=== PATIENT | female | born 1985 | race Caucasian/White ===

== ENCOUNTER → 2016-06-05 | Outpatient (CLI) | payer BC, OTHER ==
[~2016-06-05] MED LIST: PRENTAB26 PO
[2016-06-05 12:37] LABS: URINE APPEARANCE CLEAR (CLEAR); URINE BILIRUBIN NEG (NEG); URINE COLOR YELLOW; URINE NITRITE NEG (NEG); URINE PH 6.5 (4.5-7.5); URINE SPECIFIC GRAVITY 1.018 (1.000-1.030); UROBILINOGEN NEG (NEG)
[2016-06-05 12:49] LABS: MANUAL MICROSCOPIC REQUIRED? NO; REVIEW REQ? NO
== END | disposition home or self-care (01) ==
LOC: C.LABSPEC 11:15
PROVIDERS: ATTEND Obstetrics & Gynecology
DX: Z34.90 Encounter for supervision of normal pregnancy, unspecified, unspecified trimester (principal)

== ENCOUNTER → 2016-06-12 | Outpatient (CLI) | payer BC ==
[2016-06-12 14:44] LABS: BASO % 0.3 %; BASO ABS # 0.02 K/uL (0-0.2); COMPLETE YES; EOS % 1.7 %; HEMATOCRIT 38.4 % (37-47); IG% 0.1 %; LYMPH % 30.2 %; LYMPH ABS # 2.18 K/uL (1.2-3.4); MEAN CELL VOLUME 86.5 fL (80-100); MEAN CORPUSCULAR HEMOGLOBIN 29.7 pg (25-34); MEAN CORPUSCULAR HGB CONC 34.4 g/dl (32-36); MONO % 7.7 %; PLATELET COUNT 315 K/uL (130-400); RED BLOOD COUNT 4.44 M/uL (4.2-5.4); WHITE BLOOD COUNT 7.23 K/uL (4.8-10.8)
== END | disposition home or self-care (01) ==
LOC: C.LAB1850 13:14
PROVIDERS: ATTEND Obstetrics & Gynecology
DX: Z34.90 Encounter for supervision of normal pregnancy, unspecified, unspecified trimester (principal)

== ENCOUNTER → 2016-06-12 | Outpatient (CLI) | payer BC | END | disposition home or self-care (01) | LOC: C.PAPS 11:05 | PROVIDERS: ATTEND Obstetrics & Gynecology | DX: Z34.90 Encounter for supervision of normal pregnancy, unspecified, unspecified trimester (principal) ==

== ENCOUNTER → 2016-06-12 | Outpatient (CLI) | payer BC ==
[2016-06-15 11:06] LABS: MANUAL MICROSCOPIC REQUIRED? NO; URINE APPEARANCE CLEAR (CLEAR); URINE BILIRUBIN NEG (NEG); URINE COLOR YELLOW; URINE NITRITE NEG (NEG); URINE SPECIFIC GRAVITY 1.015 (1.000-1.030); UROBILINOGEN NEG (NEG)
[2016-06-15 11:07] LABS: REVIEW REQ? NO
[2016-06-16 00:45] LABS: CHLAMYDIA TRACH RNA*** NOT DETECTED (NOT DETECTED); GC (NEIS GONORRHOEAE)RNA** NOT DETECTED (NOT DETECTED)
== END | disposition home or self-care (01) ==
LOC: C.LABSPEC 15:59
PROVIDERS: ATTEND Obstetrics & Gynecology
DX: Z34.81 Encounter for supervision of other normal pregnancy, first trimester (principal)

== ENCOUNTER → 2016-08-11 | Outpatient (CLI) | payer BC ==
[2016-08-11 13:51] LABS: GTGD 50 Grams
== END | disposition home or self-care (01) ==
LOC: C.LAB1850 08:56
PROVIDERS: ATTEND Obstetrics & Gynecology
DX: Z34.82 Encounter for supervision of other normal pregnancy, second trimester (principal)

== ENCOUNTER → 2016-11-05 | Outpatient (CLI) | payer BC ==
[2016-11-05 10:07] LABS: HEMATOCRIT 36.9 % (37-47)
[2016-11-05 11:21] LABS: GTGD 50 Grams
[2016-11-05 13:33] LABS: URINE APPEARANCE CLEAR (CLEAR); URINE BILIRUBIN NEG (NEG); URINE COLOR YELLOW; URINE EPITHELIAL CELL AUTO 20-30 /lpf (0-5); URINE NITRITE NEG (NEG); URINE PH 7.5 (4.5-7.5); URINE SPECIFIC GRAVITY 1.022 (1.000-1.030); UROBILINOGEN NEG (NEG)
[2016-11-05 13:42] LABS: MANUAL MICROSCOPIC REQUIRED? NO; REVIEW REQ? NO
== END | disposition home or self-care (01) ==
LOC: C.LAB1850 08:41
PROVIDERS: ATTEND Obstetrics & Gynecology
DX: Z34.83 Encounter for supervision of other normal pregnancy, third trimester (principal)

== ENCOUNTER → 2016-12-25 | Outpatient (CLI) | payer BC | END | disposition home or self-care (01) | LOC: C.LABSPEC 15:45 | PROVIDERS: ATTEND Obstetrics & Gynecology | DX: Z34.83 Encounter for supervision of other normal pregnancy, third trimester (principal); Z3A.00 Weeks of gestation of pregnancy not specified ==

== ENCOUNTER 2017-01-07 23:39 | Inpatient (IN) | payer BC ==
[~2017-01-07] VITALS: Ht 162.6 cm; Wt 90.5 kg
[2017-01-08] MEDS ORDERED: LACTATED RINGER'S 1000ML 1,000 ML IV SCH (00:06)
[2017-01-08] MEDS ORDERED: LACTATED RINGER'S 1000ML 1,000 ML IV PRN (00:06)
[2017-01-08] MEDS ORDERED: BUPIVACAINE 0.25% 30 ML VIAL ONE (00:17)
[2017-01-08] MEDS ORDERED: EpHEDrine SULFATE INJ 50 MG/ML AMP ONE (00:17)
[2017-01-08] MEDS ORDERED: FENTANYL CITRATE INJ 50 MCG/1 ML 2 ML VIAL ONE (00:18)
[2017-01-08] MEDS ORDERED: FENTANYL 2MCG/ML ROPIV 1.25MG/ML 100ML BAG EPI ONE (00:18)
[2017-01-08 00:26] LABS: MEAN CELL VOLUME 88.5 fL (80-100); MEAN CORPUSCULAR HEMOGLOBIN 30.5 pg (25-34); MEAN PLATELET VOLUME 10.4 fL (7.4-10.4); PLATELET COUNT 191 K/uL (130-400); RED BLOOD COUNT 4.07 M/uL (4.2-5.4)
[2017-01-08 00:40] VITALS: Ht 162.6 cm; Wt 90.5 kg
[2017-01-08 00:40] LABS: INR 0.9 (0.9-1.1); MEAN CORPUSCULAR HGB CONC 34.4 g/dl (32-36)
[2017-01-08] MEDS ORDERED: NALOXONE HCL INJ 1 MG in SODIUM CHLORIDE 0.9% 1000ML 1,000 ML IV PRN (01:07)
[2017-01-08] MEDS ORDERED: LACTATED RINGER'S 1000ML 500 ML IV PRN (01:07)
[2017-01-08] MEDS ORDERED: DiphenhydrAMINE HCL 50 MG/ML VIAL IV PRN (01:15)
[2017-01-08] MEDS ORDERED: EpHEDrine SULFATE INJ 50 MG/ML AMP IV PRN (01:15)
[2017-01-08] MEDS ORDERED: NALBUPHINE HCL INJ 10 MG/ML AMP IV PRN (01:15)
[2017-01-08] MEDS ORDERED: FENTANYL 2MCG/ML ROPIV 1.25MG/ML 100ML BAG EPI PRN (01:15)
[2017-01-08] MEDS ORDERED: NALOXONE HCL INJ 0.4 MG/1 ML VIAL/CARP IV PRN (01:15)
[2017-01-08] MEDS ORDERED: OXYTOCIN 30 UNITS/500ML NSS IV ONE (02:27)
[2017-01-08] MEDS ORDERED: ACETAMINOPHEN/CODEINE 300/30MG TAB PO PRN ×2 (03:00)
[2017-01-08] MEDS ORDERED: IBUPROFEN 600 MG TAB PO PRN (03:00)
[2017-01-08] MEDS ORDERED: OXYTOCIN 30 UNITS/500ML NSS IV PRN (03:00)
[2017-01-08] MEDS ORDERED: ACETAMINOPHEN 325 MG TAB PO PRN (03:00)
[2017-01-08] MEDS ORDERED: LANOLIN OINT EXT PRN ×2 (03:00)
[2017-01-08] MEDS ORDERED: HYDROCORTISONE ACETATE 25 MG SUPP PR PRN (03:00)
[2017-01-08] MEDS ORDERED: BENZOCAINE 20% AER SPR 82.5 GM CAN EXT PRN (03:00)
[2017-01-08] MEDS ORDERED: OXYCODONE/ACETAMINOPHEN 5-325 TAB PO PRN (03:00)
[2017-01-08] MEDS ORDERED: SUPERCREAM 0.870 % 15GM JAR EXT PRN (03:00)
--- NOTE | 2017-01-08 07:27 | Anesthesia Procedure Note ---
Anesthesia Epidural Removal Nt Date & Time Jan 08, 2017 at 07:27 Vital Signs Pain Intensity: 2 Notes Mental Status: alert / awake / arousable, participated in evaluation Nausea / Vomiting: adequately controlled Pain: adequately controlled Airway Patency, RR, SpO2: stable & adequate BP & HR: stable & adequate Hydration State: stable & adequate Neuraxial Anesthesia: was administered Anesthetic Complications: no major complications apparent, pt satisfied with anesthetic care Epidural: removed without complications, with tip intact
--- NOTE | 2017-01-08 07:41 | Discharge Instructions ---
Discharge Instructions Date of Service Jan 08, 2017. Admission Reason for Admission: Demise > 22 Wks, Delivered, Currently Hospit Discharge Discharge Diagnosis / Problem: after vaginal delivery Discharge Goals Goal(s): Routine recovery after delivery Medications Continue Dispensed Medications: supercream, dermaplast, tucks, lansinoh Activity Recommendations Activity Limitations: per Instructions/Follow-up section . Instructions / Follow-Up Instructions / Follow-Up ACTIVITY RECOMMENDATIONS: * Vaginal rest (no tampons, douching, intercourse) until after doctor 's visit. * control as discussed with doctor. * Wear a bra for 24 hours/day for comfort. SPECIAL CARE INSTRUCTIONS: Medications: * vitamins, one tablet daily. Continue taking until prescription is complete. Call you doctor if: * Temperature greater than or equal to 100.4 degrees F or 38.0 degrees C. * Bleeding becomes heavier than the heaviest part of your period - saturating a sanitary pad within an hour. * Passing large clots. * Unrelieved pain. * Bleeding has a foul smelling odor. * Signs and symptoms of phlebitis: leg pain, warm, red or swollen area on leg. ___ incision has increased pain, redness, swelling, presence of any drainage, or if the incision starts to open up. FOLLOW UP VISIT: If appointment is not already scheduled: Please call MARINE ENGINE MACHINIST APPRENTICE's office to schedule a follow-up appointment in 10 days Current Hospital Diet Patient's current hospital diet: Regular OB Diet Discharge Diet Recommended Diet: Regular Diet Pending Studies Studies pending at discharge: no Medical Emergencies . Who to Call and When: Medical Emergencies: If at any time you feel your situation is an emergency, please call 911 immediately. . Non-Emergent Contact Non-Emergency issues call your: Flower Cutter . . "Provider Documentation" section prepared by Dayday Hurst. . VTE Core Measure Inpt VTE Proph given/why not?: SCD's
[2017-01-08] MEDS ORDERED: DOCUSATE SODIUM 100 MG CAP PO SCH (08:00)
--- NOTE | 2017-01-08 09:09 | DELIVERY SUMMARY ---
DATE OF OPERATION: 01/08/2017 Yesica was diagnosed with an intrauterine at 38+ weeks in the office today. She then presented in labor in late hours of January 07 and into the nurse sane of January 08. Initially, she was 5 to 6 cm and membranes intact. She requested epidural and was admitted. She progressed rapidly after membranes ruptured to fully dilated and pushed only over a few contractions. She delivered a stillborn child. Cord clamped and cut. Placenta removed with gentle traction and second-degree tear repaired with 3-0 Vicryl. Sponge and instrument counts were correct. Estimated blood loss, 250 mL. I attest to the content of the Intraoperative Record and any orders documented therein. Any exception s are noted below.
[2017-01-09] MEDS ORDERED: BISACODYL 5 MG TABEC PO SCH (20:00)
[2017-01-10] MEDS ORDERED: BISACODYL 10 MG SUPP PR PRN (07:00)
== END 2017-01-08 11:05 | disposition home or self-care (01) | DRG 775 ==
LOC: C.LD 23:39 → C.OPB 23:39 → C.LD 01-08 00:08
PROVIDERS: ADMIT Obstetrics & Gynecology; ATTEND Obstetrics & Gynecology
PROC: 0KQM0ZZ Repair Perineum Muscle, Open Approach (ICD-10-PCS; principal; 2017-01-08)
PROC: 10E0XZZ Delivery of Products of Conception, External Approach (ICD-10-PCS; principal; 2017-01-08)
DX: O36.4XX0 Maternal care for intrauterine death, not applicable or unspecified (principal); O70.1 Second degree perineal laceration during delivery; Z37.1 Single stillbirth; Z3A.38 38 weeks gestation of pregnancy

== ENCOUNTER → 2017-10-20 | Outpatient (CLI) | payer BC | END | disposition home or self-care (01) | LOC: C.LAB1850 09:19 | PROVIDERS: ATTEND Obstetrics & Gynecology | DX: O09.299 Supervision of pregnancy with other poor reproductive or obstetric history, unspecified trimester (principal) ==

== ENCOUNTER 2018-05-30 10:23 | Inpatient (IN) ==
[~2018-05-30 10:23] MED LIST changes: +CITRIC ACID/SODIUM CITRATE 15 ML UDC PO SCH; +CLINDAMYCIN 900 MG in DEXTROSE 5% 100 ML IV SCH; -PRENTAB26 PO
--- NOTE | 2018-05-30 11:08 | Obstetrical Progress Note ---
Date of Service May 30, 2018 Assessment & Plan (1) Twin gestation in third trimester: 32yo at 35.4 weeks GA. Presents for twin NST NST reactive x2 Subjective presents for twin NST Physical Exam Vital Signs (Past 24 Hours): Last Vital Signs Temp 36.8 C 05/30/18 10:53 Pulse 88 05/30/18 10:53 Resp 18 05/30/18 10:53 BP 110/68 05/30/18 10:53 Genitourinary: NST reactive x 2
[2018-05-30] MEDS ORDERED: BETAMETH SOD PHOS/ACETATE IA 6 MG/ML IM SCH (13:30)
[2018-05-30] MEDS ORDERED: GENTAMICIN CONSULT ACTIVE PRN (14:53)
--- NOTE | 2018-05-30 14:53 | History & Physical Report ---
Date of Service May 30, 2018 Assessment & Plan (1) Twin gestation in third trimester: Fetus: Cat 1 x2 Labor: Progressed. Fetus in Ceph/Breech. Discussed proceeding with primary LTCS for labor with breech presentation. Vitals: WNL GBS- PPH: Moderate risk (2) labor: History of Present Illness Primary Care Provider: ASHLEY PCP 32yo at 35.4 weeks GA. Patient presented for scheduled NST. Patient was noted to have q3-4 min contractions that the patient reported as moderate. No VB, or LOF. Good FM. issues include Stephanie TIUP, controlled hypothyroidism, and Hx of 38 week loss. On initial exam she was found to be 1.5/60/-2 she progressed to 4/70/-2. Fetus was noted to be in breech presentation. Allergies Allergy/AdvReac Type Severity Reaction Status Date / Time amoxicillin Allergy Mild HIVES Verified 05/18/18 11:12 penicillin G Allergy Mild HIVES Verified 05/18/18 11:12 Home Medications Home Medications Medication Instructions Recorded Confirmed Type vit-iron fum-folic ac 1 tab PO DAILY #0 tab 09/02/14 05/30/18 History [ Vitamin] aspirin 81 mg PO DAILY 05/06/18 05/30/18 History calcium carbonate [Calcium 500] 500 mg PO DAILY 05/06/18 05/30/18 History Patient History Medical History H/O wisdom tooth extraction Surgical History History of tonsillectomy Social History Preferred Language: Persian Communication Ability: Effective Station Captain Required: No Beliefs That Will Affect Care: None marital status: Current Living Situation: Spouse Current Living Situation Comment: Lives at home with and child (3 1/2 years old) Other Information That Helps Us Care for You: No Feels Safe at Home: Yes Safety Concerns: Feels Safe At This Time Smoking Status: Never smoker Hx Alcohol Use: No Hx Substance Use: No Physical Exam Vital Signs (Past 24 Hours): Last Vital Signs Temp 36.8 C 05/30/18 11:01 Pulse 88 05/30/18 11:01 Resp 18 05/30/18 11:01 BP 110/68 05/30/18 11:01 Genitourinary: Cervix 1.560/-2 >> /-2 Fetus: Reactive x2
[2018-05-30 15:19] LABS: Basophils # (auto) 0.01 K/uL (0-0.2); Basophils % (auto) 0.1 %; Eosinophils # (auto) 0.06 K/uL (0-0.5); Eosinophils % (auto) 0.5 %; Hematocrit (blood only) 37.1 % (37-47); Hemoglobin 12.4 g/dL (12.0-16.0); Immature Granulocytes # (auto) 0.08 K/uL (0.00-0.02); Immature Granulocytes % (auto) 0.7 %; Lymphocytes # (auto) 2.11 K/uL (1.2-3.4); Lymphocytes % (auto) 17.8 %; Mean Corpuscular Volume 89.2 fL (80-100); Mean Platelet Volume 10.9 fL (7.4-10.4); Monocytes % (auto) 6.8 %; Neutrophils # (auto) 8.78 K/uL (1.4-6.5); Neutrophils % (auto) 74.1 %; Platelet Count 183 K/uL (130-400); RDW Coefficient of Variation 14.2 % (11.5-14.5); Red Blood Count 4.16 M/uL (4.2-5.4); White Blood Count 11.84 K/uL (4.8-10.8)
[2018-05-30 15:25] LABS: Mean Corpuscular Hgb Conc 33.4 g/dL (32-36)
[2018-05-30] MEDS ORDERED: GENTAMICIN SULFATE 120 MG in DEXTROSE 5% 100 ML IV STA (15:25)
[2018-05-30] MEDS ORDERED: LACTATED RINGER'S 1,000 ML IV SCH ×3 (15:30→17:30)
[2018-05-30] MEDS ORDERED: CITRIC ACID/SODIUM CITRATE 15 ML UDC ONE (15:40)
[2018-05-30] MEDS ORDERED: fentaNYL citrate 100 MCG/2 ML VIAL ONE (15:58)
[2018-05-30] MEDS ORDERED: MoRPHine SULFATE PF 1 MG/ML 10 ML AMP/VIAL ONE (15:58)
--- NOTE | 2018-05-30 16:03 | Anesthesiology Consultation ---
Date of Service May 30, 2018 Assessment & Plan (1) Encounter for pre-operative examination: (2) Encounter for pre-operative examination: Chart Review Chart Review: Acceptable Risk for Surgery and Patient NOT seen in Pre Admission Testing Consults Requested none History Height/Weight Height: 5 ft 6 in Weight: 99.337 kg Allergies Allergy/AdvReac Type Severity Reaction Status Date / Time amoxicillin Allergy Mild HIVES Verified 05/18/18 11:12 penicillin G Allergy Mild HIVES Verified 05/18/18 11:12 Medications Home Medications Medication Instructions Recorded Confirmed Last Taken vit-iron fum-folic ac 1 tab PO DAILY #0 tab 09/02/14 05/30/18 05/29/18 21:00 [ Vitamin] aspirin 81 mg PO DAILY 05/06/18 05/30/18 05/29/18 21:00 calcium carbonate [Calcium 500] 500 mg PO DAILY 05/06/18 05/30/18 05/30/18 06:00 Active Medications Generic Name Dose Route Start Last Admin Trade Name Freq PRN Reason Stop Dose Admin Betamethasone Acet/Betameth SodPhos 12 mg 05/30/18 13:30 05/30/18 14:22 Celestone Soluspan IM 05/31/18 23:59 12 mg DAILY NAVEEN Administration Gentamicin Sulfate 120 mg/ 103 mls @ 100 mls/hr 05/30/18 15:25 05/30/18 15:45 Dextrose IV 05/30/18 16:26 100 mls/hr ONCE STA Administration Past Medical History Medical History H/O wisdom tooth extraction Past Surgical History Surgical History History of tonsillectomy Past Anesthesia History No Hx of Anesthesia Complications and No Family Hx of Anesthesia Complications History of PONV No Motion Sickness Screening History of Motion Sickness: No Social History Smoking Status: Never smoker Do You Dip or Chew Tobacco: No Hx Alcohol Use: No Hx Substance Use: No substance use type: does not use Exercise / Class Metabolic Activity II 4-5 Yardwork/Stairs/Walk up hill Physical Exam Vital Signs Last Vital Signs Temp 36.8 C 05/30/18 11:01 Pulse 88 05/30/18 11:01 Resp 18 05/30/18 11:01 BP 110/68 05/30/18 11:01 Testing Laboratory Results 05/30/18 15:09
[2018-05-30] MEDS ORDERED: PROMETHAZINE HCL 25 MG in SODIUM CHLORIDE 0.9% 50 ML IV PRN ×2 (16:33→17:28)
[2018-05-30] MEDS ORDERED: NALOXONE HCL 0.08 MG in SYRINGE 1.8 ML IV PRN (16:33)
[2018-05-30] MEDS ORDERED: DiphenhydrAMINE HCL 50 MG/ML VIAL IV PRN (16:33)
[2018-05-30] MEDS ORDERED: ePHEDrine sulfate 50 MG/ML AMP IV PRN (16:33)
[2018-05-30] MEDS ORDERED: KETOROLAC 30 MG/ML VIAL IV PRN ×2 (16:33→17:28)
[2018-05-30] MEDS ORDERED: LACTATED RINGER'S 500 ML IV PRN (16:33)
[2018-05-30] MEDS ORDERED: NALOXONE HCL 0.4 MG/1 ML VIAL/CARP IV PRN (16:33)
[2018-05-30] MEDS ORDERED: MEPERIDINE HCL 25 MG/ML CARP IV PRN (16:33)
[2018-05-30] MEDS ORDERED: NALOXONE HCL 1 MG in SODIUM CHLORIDE 0.9% 1000ML 1,000 ML IV PRN (16:33)
[2018-05-30] MEDS ORDERED: MoRPHine SULFATE 2 MG/ML CARP IV PRN (16:33)
[2018-05-30] MEDS ORDERED: NALBUPHINE HCL INJ 10 MG/ML AMP IV PRN (16:33)
[2018-05-30] MEDS ORDERED: MoRPHine SULFATE PF 1 MG/ML 10 ML AMP/VIAL INT SPINAL ONE (16:33)
[2018-05-30] MEDS ORDERED: ONDANSETRON INJ 2 MG/ML 2 ML VIAL IV PRN ×2 (16:33→17:28)
[2018-05-30] MEDS ORDERED: SODIUM CHLORIDE 0.9% 1000ML 1,000 ML IV SCH (16:45)
[2018-05-30] MEDS ORDERED: DC INTRASPINAL MORPHINE SCH (16:45)
[2018-05-30] MEDS ORDERED: NO NARCOTICS OR SEDATIVES SCH (16:45)
[2018-05-30] MEDS ORDERED: ONDANSETRON INJ 2 MG/ML 2 ML VIAL ONE (17:13)
[2018-05-30] MEDS ORDERED: PHENYLEPHRINE 100MCG/ML 5ML SYR ONE (17:13)
[2018-05-30] MEDS ORDERED: PHENYLEPHRINE HCL 10 MG/ML VIAL ONE (17:13)
[2018-05-30] MEDS ORDERED: OXYTOCIN 10 UNITS/ML VIAL ONE (17:13)
[2018-05-30] MEDS ORDERED: SUPERCREAM 0.870% 15 GM JAR EXT PRN (17:28)
[2018-05-30] MEDS ORDERED: SENNA 8.6 MG TAB PO PRN (17:28)
[2018-05-30] MEDS ORDERED: MAGNESIUM HYDROXIDE SUSP 30 ML UDC PO PRN (17:28)
[2018-05-30] MEDS ORDERED: DIPHTHERIA/TETANUS/PERTUSSIS 0.5 ML SYR/VIAL IM ONE (17:28)
[2018-05-30] MEDS ORDERED: OXYCODONE/ACETAMINOPHEN 5mg/325mg TAB PO PRN (17:28)
[2018-05-30] MEDS ORDERED: BENZOCAINE 20% AER SPR 82.5 GM CAN EXT PRN (17:28)
[2018-05-30] MEDS ORDERED: HYDROCORTISONE ACETATE 25 MG SUPP PR PRN (17:28)
--- NOTE | 2018-05-30 17:35 | Post Operative Brief Note ---
Immediate Post Op Note v1 Date of Surgery May 30, 2018 Pre & Post Diagnosis Operation Date: 05/30/18 16:10 PreOP: 1. Stephanie twin IUP 2. labor 3. Breech presentation of second twin PostOp: Same Procedure Operation Date: 05/30/18 16:10 Primary low transverse EBL: 500 Complications: None Surgeon Baldev Bush MD Student Services Vice President David Estimated Blood Loss 500 Findings Consistent with Post-Op Diagnosis
--- NOTE | 2018-05-30 18:14 | Anesthesiology Progress Note ---
Date of Service May 30, 2018 Anesthesia Post Procedure Vital Signs Vital Signs: Temp Pulse Resp BP 05/30/18 16:10 97 H 129/74 05/30/18 11:01 36.8 C 88 18 110/68 05/30/18 10:53 36.8 C 88 18 110/68 Notes Mental Status: alert / awake / arousable Patient Amnestic to Procedure: No Nausea / Vomiting: adequately controlled Pain: adequately controlled Airway Patency, RR, SpO2: stable & adequate BP & HR: stable & adequate Hydration State: stable & adequate Neuraxial Anesthesia: was administered and sensory block is resolving Anesthetic Complications: no major complications apparent and Pt Satisfied with anesthetic care
[2018-05-30] MEDS: OXYTOCIN 20 UNITS in LACTATED RINGER'S 1,000 ML IV SCH (19:48)
[2018-05-30] MEDS: DOCUSATE SODIUM 100 MG CAP PO SCH (20:43)
[2018-05-30] MEDS: SIMETHICONE 80 MG CHEW PO SCH (20:43)
--- NOTE | 2018-05-30 22:35 | Operative Report ---
DATE OF OPERATION: 05/30/2018 PROCEDURE: Primary low transverse section. SURGEON: Baldev Bush MD BIOLOGICAL SCIENCES PROFESSOR: Ritesh Hernandez MD PREOPERATIVE DIAGNOSES: 1. Dichorionic/diamniotic twin intrauterine at 35 weeks 4 days gestational age. 2. labor. 3. Breech presentation of twin B. POSTOPERATIVE DIAGNOSES: 1. Dichorionic/diamniotic twin intrauterine at 35 weeks 4 days gestational age. 2. labor. 3. Breech presentation of twin B. 4. Delivered. ESTIMATED BLOOD LOSS: 500 mL DRAINS: Centeno. FLUIDS: Continuous lactated ringer. URINE OUTPUT: 500 mL via Centeno. COMPLICATIONS: None. FINDINGS: Delivery of fetus A was a viable female infant with weight and Apgars currently pending. Fetus B was a viable male infant with a weight and Apgars pending. INDICATIONS: Ms. Che is a 32-year-old G3, P2-0-0-1 admitted at 35 weeks 4 days gestational age with labor of di/di twins at initial presentation, she was presented for an NST for twin intrauterine . During her NST, she was noted to be chapo every 2-4 minutes. At that time, she was finding them as mild. They increased in intensity and the patient was initially checked and found to be 1.5 cm dilated. She progressed over an approximately 3-4 hour Blanquita period to 4 cm dilated, 75% effaced, -1-2 station. An ultrasound was performed and fetus A was noted to be in cephalic position and fetus B was noted to be in yisel breech position. The findings were discussed with the patient and her partner including the labor with fetus B being in breech presentation and the recommendation for a primary section was discussed. The patient did agree to the procedure. Consents were reviewed and signed. The patient was taken to the operating room. DESCRIPTION OF PROCEDURE: The patient was taken to the operating room after consents were ensured upon presentation, which she was properly identified. Spinal anesthesia was obtained without difficulty. The patient was then placed in dorsal supine position with left lateral tilt. She was then prepped and draped in the normal sterile fashion. A preprocedural timeout was performed. The appropriate surgical anesthesia levels were then checked and noted to be appropriate. A Pfannenstiel skin incision was then made with a knife. This was carried down to underlying fascia with the Bovie and blunt dissection. The fascia was then nicked at midline with a knife. The fascia was then extended laterally in each direction with pickdeven and Guzman scissors. The superior portion of the fascia was then grasped with Kochers x2 and elevated off the underlying rectus muscle using blunt dissection with the knife. The inferior aspect of the fascia was then grasped with Drew x2 and elevated off the underlying rectus muscles using blunt dissection. Midline was then entered bluntly and placed on stretch to provide adequate room for delivery. The bladder blade was inserted and bladder flap was created. A low transverse uterine incision was then made and amniotic cavity of twin A was entered bluntly. Head of the was noted to be in cephalic position was delivered through the hysterotomy without difficulty. The body and shoulders quickly followed. The was noted to be vigorous initially, although then became somewhat less vigorous and the decision was made to discontinue the delayed cord clamping. Cord was then double clamped and cut and the was taken to the waiting nursery staff. Attention was then turned to delivery of the fetus B. He was noted to still be in breech presentation. The amniotic fluid was then ruptured for clear. The was then brought through hysterotomy. The legs were internally rotated for delivery. The delivery was continued until the axilla of the was near the hysterotomy. The internal rotation of both arms did deliver. Both shoulders and the head of the then quickly followed. The was noted not be vigorous and the decision was made to discontinue delayed cord clamping, the cord was doubly clamped and cut. was taken to the awaiting nursery staff. Cord blood was then obtained for fetus A followed by fetus B. The attention was then turned to deliver the placenta. It was delivered intact with 3-vessel cord bilaterally. The uterus was exteriorized, wrapped in a wet lap and several passes were made inside to remove any remaining membranes, cord. The hysterotomy was then reapproximated with the initial 0 Vicryl in a continuous running locked suture. A second imbricating layer of 0 Vicryl and continuous running stitch was then performed. The posterior cul-de-sac was then cleaned of clots and debris. The uterus was then returned to the maternal abdomen. Inspection of the hysterotomy showed a small area of bleeding and a [id number] suture was performed to achieve hemostasis. Right and left pericolic gutters were cleaned of clots and debris. The hysterotomy was noted to have continued hemostasis. The fascia, muscles and subcutaneous layers were inspected and noted to be hemostatic. The fascia was closed with 0 Vicryl in a continuous running suture stitch. The subcutaneous layers were reapproximated with a 2-0 plain with interrupted stitch. The skin was reapproximated with 3-0 Vicryl on a Joss needle. Needle, sponge and instrument counts were correct at the completion of the case. I attest to the content of the Intraoperative Record and any orders documented therein. Any exception s are noted below.
[2018-05-31] MEDS: OXYTOCIN 20 UNITS in LACTATED RINGER'S 1,000 ML IV SCH (03:59)
--- NOTE | 2018-05-31 07:47 | Anesthesiology Progress Note ---
Date of Service May 31, 2018 Anesthesia Post Procedure Vital Signs Vital Signs: Temp Pulse Pulse Pulse Pulse Resp BP 05/31/18 06:00 18 05/31/18 05:25 16 05/31/18 04:25 18 05/31/18 03:10 36.9 C 87 18 05/31/18 02:20 18 05/31/18 01:15 16 05/31/18 00:10 36.7 C 80 18 05/30/18 23:45 18 05/30/18 22:00 18 05/30/18 21:00 36.6 C 100 H 18 05/30/18 20:00 18 05/30/18 19:15 36.7 C 101 H 18 05/30/18 18:35 37.1 C 92 H 20 05/30/18 18:25 102 H 20 05/30/18 18:15 106 H 22 05/30/18 18:05 93 H 20 05/30/18 17:55 92 H 16 05/30/18 17:45 102 H 22 05/30/18 17:35 36.4 C L 99 H 17 05/30/18 16:10 97 H 129/74 05/30/18 11:01 36.8 C 88 18 110/68 05/30/18 10:53 36.8 C 88 18 110/68 BP Pulse Ox 05/31/18 06:00 96 05/31/18 05:25 94 05/31/18 04:25 96 05/31/18 03:10 111/68 97 05/31/18 02:20 96 05/31/18 01:15 93 05/31/18 00:10 104/64 98 05/30/18 23:45 96 05/30/18 22:00 97 05/30/18 21:00 106/65 97 05/30/18 20:00 98 05/30/18 19:15 103/64 97 05/30/18 18:35 112/58 L 98 05/30/18 18:25 111/60 99 05/30/18 18:15 122/58 L 100 05/30/18 18:05 96/54 L 100 05/30/18 17:55 90/46 L 99 05/30/18 17:45 98/50 L 99 05/30/18 17:35 125/92 100 05/30/18 16:10 05/30/18 11:01 05/30/18 10:53 Notes Mental Status: alert / awake / arousable Patient Amnestic to Procedure: Yes Nausea / Vomiting: adequately controlled Pain: adequately controlled Airway Patency, RR, SpO2: stable & adequate BP & HR: stable & adequate Hydration State: stable & adequate Neuraxial Anesthesia: was administered and sensory block resolved Anesthetic Complications: no major complications apparent and Pt Satisfied with anesthetic care Notes: The patient is doing well. She is comfortable and vitals are stable.
[2018-05-31] MEDS: DOCUSATE SODIUM 100 MG CAP PO SCH ×2 (08:29→21:02)
[2018-05-31] MEDS: PRENATAL VITAMIN 1 TAB PO SCH (08:29)
[2018-05-31] MEDS: SIMETHICONE 80 MG CHEW PO SCH ×4 (08:29→21:02)
[2018-05-31] MEDS: FERROUS SULFATE 325 MG TAB PO SCH (08:29)
[2018-05-31] MEDS ORDERED: MoRPHine SULFATE 2 MG/ML CARP IV PRN (10:33)
[2018-05-31] MEDS ORDERED: PROMETHAZINE HCL 25 MG in SODIUM CHLORIDE 0.9% 50 ML IV PRN (10:33)
[2018-05-31] MEDS ORDERED: DiphenhydrAMINE HCL 50 MG/ML VIAL IV PRN (10:33)
[2018-05-31] MEDS ORDERED: KETOROLAC 30 MG/ML VIAL IV PRN (10:33)
[2018-05-31] MEDS ORDERED: OXYCODONE/ACETAMINOPHEN 5mg/325mg TAB PO PRN (10:33)
[2018-05-31] MEDS ORDERED: ONDANSETRON INJ 2 MG/ML 2 ML VIAL IV PRN (10:33)
[2018-05-31 10:46] LABS: Eosinophils # (auto) 0.02 K/uL (0-0.5); Eosinophils % (auto) 0.1 %; Hematocrit (blood only) 32.3 % (37-47); Hemoglobin 10.8 g/dL (12.0-16.0); Immature Granulocytes # (auto) 0.06 K/uL (0.00-0.02); Immature Granulocytes % (auto) 0.4 %; Lymphocytes # (auto) 1.55 K/uL (1.2-3.4); Lymphocytes % (auto) 9.5 %; Mean Corpuscular Hgb Conc 33.4 g/dL (32-36); Mean Platelet Volume 10.7 fL (7.4-10.4); Monocytes # (auto) 1.46 K/uL (0.11-0.59); Monocytes % (auto) 8.9 %; Neutrophils # (auto) 13.26 K/uL (1.4-6.5); Neutrophils % (auto) 81.1 %; Platelet Count 165 K/uL (130-400); RDW Standard Deviation 45.5 fL (36.4-46.3); Red Blood Count 3.63 M/uL (4.2-5.4); White Blood Count 16.35 K/uL (4.8-10.8)
[2018-05-31] MEDS: IBUPROFEN 600 MG TAB PO PRN (15:25)
[2018-05-31] MEDS ORDERED: BISACODYL 5 MG TABEC PO SCH (20:00)
--- NOTE | 2018-06-01 06:39 | Obstetrical Progress Note ---
Date of Service June 01, 2018 Assessment & Plan (1) Status post section routine follow-up: -vital signs reviewed and WNL -last Hgb 10.8 -Blood type: O+, GBS-, Rubella Immune -pt doing well clinically -encourage ambulation, monitor and control pain with motrin tylenol, cont regular diet, monitor lochia -cont encourage breast feeding Subjective 32 y/o POD2 found in bed this morning in NAD. Reports no acute overnight events. Pt states that she has no pain other than appropriate soreness. Tolerating liquid PO intake without N/V, will start solids today. Able to ambulate without issue. She is both bottle and breast feeding without issue. No issues with voiding. No other acute concerns or complaints. Review of Systems All systems reviewed & are unremarkable except as noted in HPI & below Physical Exam Vital Signs (Past 24 Hours) Last Vital Signs Temp 36.6 C 05/31/18 23:00 Pulse 82 05/31/18 23:00 Resp 18 05/31/18 23:00 BP 103/63 05/31/18 23:00 Pulse Ox 97 05/31/18 23:00 Constitutional WD/WN, vitals as above Eyes PERRL, conjunctivae normal, anicteric sclerae ENMT external ear and nose normal, oropharynx normal Respiratory normal respiratory effort, lungs clear to auscultation Cardiovascular RRR, no murmur, no edema Gastrointestinal (Abdomen) mild abd tenderness incision C/D/I Skin no rashes, warm and dry Psychiatric A+Ox3, euthymic affect Lymphatic no LE swelling, no calf tenderness Results & Data Laboratory Results Laboratory Results - last 24 hr 05/31/18 10:36 WBC 16.35 H RBC 3.63 L Hgb 10.8 L Hct 32.3 L MCV 89.0 MCH 29.8 MCHC 33.4 RDW Std Deviation 45.5 RDW Coeff of Edi 14.0 Plt Count 165 MPV 10.7 H Immature Gran % (Auto) 0.4 Neut % (Auto) 81.1 Lymph % (Auto) 9.5 [place] % (Auto) 8.9 Eos % (Auto) 0.1 Baso % (Auto) 0.0 Immature Gran # (Auto) 0.06 H Neut # (Auto) 13.26 H Lymph # (Auto) 1.55 [place] # (Auto) 1.46 H Eos # (Auto) 0.02 Baso # (Auto) 0.00 Medications Administered Current Inpatient Medications Benzocaine (Dermoplast Pain Relieving Kupreanof) 1 appln EXT UD PRN PRN Reason: use on skin as needed Stop: 06/29/18 17:27 Bisacodyl (Dulcolax) 10 mg TN PRN PRN PRN Reason: Constipation Stop: 07/01/18 17:27 Cocaine HCl (Supercream 0.870%) 1 gm EXT UD PRN PRN Reason: hemmorrhoidal inflammation Stop: 06/13/18 17:27 Diphenhydramine HCl (Benadryl) 25 mg IV QID PRN PRN Reason: Itching Stop: 06/30/18 10:32 Diphenhydramine HCl (Benadryl Capsule) 25 mg PO QID PRN PRN Reason: Itching Stop: 06/30/18 10:32 Docusate Sodium (Colace) 100 mg PO BID [facility] Stop: 06/29/18 20:59 Last Admin: 05/31/18 21:02 Dose: 100 mg Documented by: Ferrous Sulfate (Feosol) 325 mg PO QAM NAVEEN Stop: 06/30/18 08:59 Last Admin: 05/31/18 08:29 Dose: 325 mg Documented by: Hydrocortisone (Anusol Hc) 25 mg TN BID PRN PRN Reason: Hemorrhoids Stop: 06/29/18 17:27 Lactated Ringer's (Lr) 1,000 mls @ 125 mls/hr IV .Q8H [facility] Stop: 06/29/18 15:59 Lactated Ringer's (Lr) 1,000 mls @ 125 mls/hr IV .Q8H NAVEEN Stop: 06/29/18 17:29 Promethazine HCl 25 mg/ Sodium (Chloride) 51 mls @ 204 mls/hr IV Q4H PRN PRN Reason: Nausea And Vomiting Stop: 06/30/18 10:32 Ibuprofen (Motrin) 600 mg PO Q4H PRN PRN Reason: Pain Stop: 06/29/18 17:27 Last Admin: 05/31/18 15:25 Dose: 600 mg Documented by: Ketorolac Tromethamine (Toradol) 30 mg IV Q6H PRN PRN Reason: Pain Stop: 06/05/18 10:32 Magnesium Hydroxide (Milk Of Magnesia) 30 ml PO HS PRN PRN Reason: Constipation Stop: 06/29/18 17:27 Ondansetron HCl (Zofran) 4 mg IV Q4H PRN PRN Reason: Nausea And Vomiting Stop: 06/30/18 10:32 Oxycodone/Acetaminophen (Percocet 5mg/325mg) 1 - 2 tab PO Q4H PRN PRN Reason: Pain Stop: 06/14/18 10:32 Prenat Multivit/[place]/Iron/Folic Ac ( Vitamin) 1 tab PO QAM [facility] Stop: 06/30/18 08:59 Last Admin: 05/31/18 08:29 Dose: 1 tab Documented by: Sennosides (Senokot) 17.2 mg PO HS PRN PRN Reason: Constipation Stop: 06/29/18 17:27 Simethicone (Mylicon) 80 mg PO QID [facility] Stop: 06/29/18 20:59 Last Admin: 05/31/18 21:02 Dose: 80 mg Documented by: Resident Activity Tracking Resident Involvement: Resident Care Provided Care Provided: OB Delivery
[2018-06-01 07:02] LABS: Hematocrit (blood only) 31.5 % (37-47); Hemoglobin 10.4 g/dL (12.0-16.0)
[2018-06-01] MEDS: FERROUS SULFATE 325 MG TAB PO SCH (08:48)
[2018-06-01] MEDS: IBUPROFEN 600 MG TAB PO PRN ×2 (08:48→23:56)
[2018-06-01] MEDS: DOCUSATE SODIUM 100 MG CAP PO SCH ×2 (08:48→20:31)
[2018-06-01] MEDS: SIMETHICONE 80 MG CHEW PO SCH ×3 (08:48→20:31)
[2018-06-01] MEDS: PRENATAL VITAMIN 1 TAB PO SCH (08:48)
[2018-06-01] MEDS ORDERED: BISACODYL 10 MG SUPP PR PRN (17:28)
--- NOTE | 2018-06-02 06:55 | Obstetrical Progress Note ---
Date of Service <Epi Morel - Last Filed: 06/02/18 06:55> June 02, 2018 Assessment & Plan <Epi Morel - Last Filed: 06/02/18 06:55> (1) Status post section routine follow-up: -vital signs reviewed and WNL -last Hgb 10.8 -Blood type: O+, GBS-, Rubella Immune -pt doing well clinically -encourage ambulation, monitor and control pain with motrin tylenol, cont regular diet, monitor lochia -cont encourage breast feeding Subjective <Epi Morel - Last Filed: 06/02/18 06:55> 32 y/o POD3 found in bed this morning in NAD. Reports no acute overnight events. Pt states that she has no pain other than appropriate soreness. Tolerating PO intake without N/V. Able to ambulate without issue. She is both bottle and breast feeding without issue. No issues with voiding, no BM yet. No other acute concerns or complaints. Review of Systems All systems reviewed & are unremarkable except as noted in HPI & below Physical Exam <Epi Morel - Last Filed: 06/02/18 06:55> Vital Signs (Past 24 Hours) Last Vital Signs Temp 36.8 C 06/01/18 23:50 Pulse 98 H 06/01/18 23:50 Resp 18 06/01/18 23:50 BP 115/74 06/01/18 23:50 Pulse Ox 97 06/01/18 15:15 Constitutional WD/WN, vitals as above Eyes PERRL, conjunctivae normal, anicteric sclerae ENMT external ear and nose normal, oropharynx normal Respiratory normal respiratory effort, lungs clear to auscultation Cardiovascular RRR, no murmur, no edema Gastrointestinal (Abdomen) mild abd tenderness Incision C/D/I Skin no rashes, warm and dry Psychiatric A+Ox3, euthymic affect Lymphatic no LE swelling, no calf tenderness Results & Data <Epi KerryTess MorelDO - Last Filed: 06/02/18 06:55> Laboratory Results Laboratory Results - last 24 hr 06/01/18 06:32 Hgb 10.4 L Hct 31.5 L Medications Administered Current Inpatient Medications Benzocaine (Dermoplast Pain Relieving [place]) 1 appln EXT UD PRN PRN Reason: use on skin as needed Stop: 06/29/18 17:27 Bisacodyl (Dulcolax) 10 mg [place] PRN PRN PRN Reason: Constipation Stop: 07/01/18 17:27 Cocaine HCl (Supercream 0.870%) 1 gm EXT UD PRN PRN Reason: hemmorrhoidal inflammation Stop: 06/13/18 17:27 Diphenhydramine HCl (Benadryl) 25 mg IV QID PRN PRN Reason: Itching Stop: 06/30/18 10:32 Diphenhydramine HCl (Benadryl Capsule) 25 mg PO QID PRN PRN Reason: Itching Stop: 06/30/18 10:32 Docusate Sodium (Colace) 100 mg PO BID NAVEEN Stop: 06/29/18 20:59 Last Admin: 06/01/18 20:31 Dose: 100 mg Documented by: Ferrous Sulfate (Feosol) 325 mg PO QAM NAVEEN Stop: 06/30/18 08:59 Last Admin: 06/01/18 08:48 Dose: 325 mg Documented by: Hydrocortisone (Anusol Hc) 25 mg [place] BID PRN PRN Reason: Hemorrhoids Stop: 06/29/18 17:27 Lactated Ringer's (Lr) 1,000 mls @ 125 mls/hr IV .Q8H NAVEEN Stop: 06/29/18 15:59 Lactated Ringer's (Lr) 1,000 mls @ 125 mls/hr IV .Q8H [facility] Stop: 06/29/18 17:29 Promethazine HCl 25 mg/ Sodium (Chloride) 51 mls @ 204 mls/hr IV Q4H PRN PRN Reason: Nausea And Vomiting Stop: 06/30/18 10:32 Ibuprofen (Motrin) 600 mg PO Q4H PRN PRN Reason: Pain Stop: 06/29/18 17:27 Last Admin: 06/01/18 23:56 Dose: 600 mg Documented by: Ketorolac Tromethamine (Toradol) 30 mg IV Q6H PRN PRN Reason: Pain Stop: 06/05/18 10:32 Magnesium Hydroxide (Milk Of Magnesia) 30 ml PO HS PRN PRN Reason: Constipation Stop: 06/29/18 17:27 Ondansetron HCl (Zofran) 4 mg IV Q4H PRN PRN Reason: Nausea And Vomiting Stop: 06/30/18 10:32 Oxycodone/Acetaminophen (Percocet 5mg/325mg) 1 - 2 tab PO Q4H PRN PRN Reason: Pain Stop: 06/14/18 10:32 Prenat Multivit/[place]/Iron/Folic Ac ( Vitamin) 1 tab PO QAM NAVEEN Stop: 06/30/18 08:59 Last Admin: 06/01/18 08:48 Dose: 1 tab Documented by: Sennosides (Senokot) 17.2 mg PO HS PRN PRN Reason: Constipation Stop: 06/29/18 17:27 Simethicone (Mylicon) 80 mg PO QID [facility] Stop: 06/29/18 20:59 Last Admin: 06/01/18 20:31 Dose: 80 mg Documented by: <Trevor River Jr, MD, FACOG - Last Filed: 06/02/18 07:12> Co-Signing Physician Notes Resident Physician Supervision Note: I was present with Dr. Morel during the history and exam. I discussed the case with the resident and agree with the findings and plan as documented in the note. Any exceptions or clarifications are listed here: Pt doing well, routine post-op care Documented By: Trevor River Jr, MD, FACOG Resident Activity Tracking <Epi Morel DO - Last Filed: 06/02/18 06:55> Resident Involvement: Resident Care Provided Care Provided: OB Delivery
[2018-06-02] MEDS: DOCUSATE SODIUM 100 MG CAP PO SCH ×2 (08:14→20:53)
[2018-06-02] MEDS: PRENATAL VITAMIN 1 TAB PO SCH (08:14)
[2018-06-02] MEDS: FERROUS SULFATE 325 MG TAB PO SCH (08:14)
[2018-06-02] MEDS: SIMETHICONE 80 MG CHEW PO SCH ×4 (08:14→20:53)
--- NOTE | 2018-06-03 06:59 | Obstetrical Progress Note ---
Date of Service <Epi Morel - Last Filed: 06/03/18 06:59> June 03, 2018 Assessment & Plan <Epi Morel - Last Filed: 06/03/18 06:59> (1) Status post section routine follow-up: -vital signs reviewed and WNL -last Hgb 10.4 -Blood type: O+, GBS-, Rubella Immune -pt doing well clinically -encourage ambulation, monitor and control pain with motrin tylenol, cont regular diet, monitor lochia -cont encourage breast feeding -plan for d/c today Subjective <Epi Morel - Last Filed: 06/03/18 06:59> 32 y/o POD4 found in bed this morning in NAD. Reports no acute overnight events. Pt states that she has no pain other than appropriate soreness. Tolerating PO intake without N/V. Able to ambulate without issue. She is both bottle and breast feeding without issue. No issues with voiding. No other acute concerns or complaints. Pt ok with plan for d/c today. Review of Systems All systems reviewed & are unremarkable except as noted in HPI & below Physical Exam <Epi Morel, DO - Last Filed: 06/03/18 06:59> Vital Signs (Past 24 Hours) Last Vital Signs Temp 36.6 C 06/03/18 01:15 Pulse 85 06/03/18 01:15 Resp 18 06/03/18 01:15 BP 116/76 06/03/18 01:15 Pulse Ox 97 06/02/18 15:47 Constitutional WD/WN, vitals as above Eyes PERRL, conjunctivae normal, anicteric sclerae ENMT external ear and nose normal, oropharynx normal Respiratory normal respiratory effort, lungs clear to auscultation Cardiovascular RRR, no murmur, no edema Gastrointestinal (Abdomen) mild abd tenderness Incision C/D/I Skin no rashes, warm and dry Psychiatric A+Ox3, euthymic affect Lymphatic no LE swelling, no calf tenderness Results & Data <Epi Morel, DO - Last Filed: 06/03/18 06:59> Medications Administered Current Inpatient Medications Benzocaine (Dermoplast Pain Relieving [place]) 1 appln EXT UD PRN PRN Reason: use on skin as needed Stop: 06/29/18 17:27 Bisacodyl (Dulcolax) 10 mg [place] PRN PRN PRN Reason: Constipation Stop: 07/01/18 17:27 Cocaine HCl (Supercream 0.870%) 1 gm EXT UD PRN PRN Reason: hemmorrhoidal inflammation Stop: 06/13/18 17:27 Diphenhydramine HCl (Benadryl) 25 mg IV QID PRN PRN Reason: Itching Stop: 06/30/18 10:32 Diphenhydramine HCl (Benadryl Capsule) 25 mg PO QID PRN PRN Reason: Itching Stop: 06/30/18 10:32 Docusate Sodium (Colace) 100 mg PO BID NAVEEN Stop: 06/29/18 20:59 Last Admin: 06/02/18 20:53 Dose: 100 mg Documented by: Ferrous Sulfate (Feosol) 325 mg PO QAM NAVEEN Stop: 06/30/18 08:59 Last Admin: 06/02/18 08:14 Dose: 325 mg Documented by: Hydrocortisone (Anusol Hc) 25 mg [place] BID PRN PRN Reason: Hemorrhoids Stop: 06/29/18 17:27 Lactated Ringer's (Lr) 1,000 mls @ 125 mls/hr IV .Q8H NAVEEN Stop: 06/29/18 15:59 Lactated Ringer's (Lr) 1,000 mls @ 125 mls/hr IV .Q8H [facility]EN Stop: 06/29/18 17:29 Promethazine HCl 25 mg/ Sodium (Chloride) 51 mls @ 204 mls/hr IV Q4H PRN PRN Reason: Nausea And Vomiting Stop: 06/30/18 10:32 Ibuprofen (Motrin) 600 mg PO Q4H PRN PRN Reason: Pain Stop: 06/29/18 17:27 Last Admin: 06/01/18 23:56 Dose: 600 mg Documented by: Ketorolac Tromethamine (Toradol) 30 mg IV Q6H PRN PRN Reason: Pain Stop: 06/05/18 10:32 Magnesium Hydroxide (Milk Of Magnesia) 30 ml PO HS PRN PRN Reason: Constipation Stop: 06/29/18 17:27 Ondansetron HCl (Zofran) 4 mg IV Q4H PRN PRN Reason: Nausea And Vomiting Stop: 06/30/18 10:32 Oxycodone/Acetaminophen (Percocet 5mg/325mg) 1 - 2 tab PO Q4H PRN PRN Reason: Pain Stop: 06/14/18 10:32 Prenat Multivit/[place]/Iron/Folic Ac ( Vitamin) 1 tab PO QAM NAVEEN Stop: 06/30/18 08:59 Last Admin: 06/02/18 08:14 Dose: 1 tab Documented by: Sennosides (Senokot) 17.2 mg PO HS PRN PRN Reason: Constipation Stop: 06/29/18 17:27 Simethicone (Mylicon) 80 mg PO QID NAVEEN Stop: 06/29/18 20:59 Last Admin: 06/02/18 20:53 Dose: Not Given Documented by: <Shruthi Baer, - Last Filed: 06/03/18 09:13> Co-Signing Physician Notes I have seen/examined patient. I have read above note performed by resident and I agree with above. Any changes/additions are as follows: POD#4 doing well. DC home today. Reviewed instructions. Shruthi Baer DO [facility] Resident Activity Tracking <Epi Morel, - Last Filed: 06/03/18 06:59> Resident Involvement: Resident Care Provided Care Provided: OB Delivery
[2018-06-03] MEDS: SIMETHICONE 80 MG CHEW PO SCH ×4 (08:55→16:36)
[2018-06-03] MEDS: FERROUS SULFATE 325 MG TAB PO SCH (08:56)
[2018-06-03] MEDS: DOCUSATE SODIUM 100 MG CAP PO SCH (08:57)
[2018-06-03] MEDS: PRENATAL VITAMIN 1 TAB PO SCH (08:57)
--- NOTE | 2018-06-06 13:11 | Discharge Summary ---
PROCEDURES WHILE ADMITTED: Primary low transverse section. ADMITTING ATTENDING: Baldev Bush MD OPERATING ATTENDING: Baldev Bush MD HOSPITAL COURSE: The patient initially presented on 05/30 for a scheduled NST. During NST, the patient was noted to have regular contractions which became more painful over time. On initial check, the patient was found to be 1.5 cm dilated. A labor evaluation was initiated, and approximately 3 hours later, the patient was rechecked and noted to have progressed to 3 cm dilated. When the patient was first noted to have started contractions, the patient was offered a course of steroids which she accepted and were given to her. The patient continued to contract and progress in labor and ultimately progressed to 4 cm dilated, at which time the patient was admitted for labor. An ultrasound was performed when the patient initially presented and was noted to have the fetus to be in breech presentation. consents were reviewed and signed at that time and the patient ultimately proceed with a primary low transverse section for labor with fetus B in breech presentation. The procedure was without complication. The patient stayed approximately 4 days without issue and was discharged on day #4. The patient will follow up in clinic in 6 weeks or as needed.
== END 2018-06-03 19:30 | disposition home or self-care (01) | DRG 786 ==
LOC: OPB 10:23 → 4S1 10:23 → OBSVTOIN 10:48 → 4S2 13:25